=== PATIENT | female | born 1945 | race Caucasian/White ===

== ENCOUNTER 2018-02-27 10:31 | Outpatient (CLI) | payer BC ==
[2018-02-27 11:28] LABS: #Basophils 0.1 thou/uL (0.0-0.2); #Eosinphils 0.1 thou/uL (0.0-0.7); #Lymphocytes 1.5 thou/uL (1.20-3.40); #Monocytes 0.8 thou/uL (0.11-0.59); #Neutrophils 4.1 thou/uL (1.40-6.50); %Basophils 1.1 % (0.0-1.0); %Eosinophils 1.8 % (0.0-10.0); %Monocytes 11.8 % (0.0-10.0); %Neutrophils 62.3 % (42.0-75.0); Hemoglobin 13.4 g/dL (12.0-16.0); Mean Corpuscular HGB CONC 34.1 g/dL (32.0-36.0); Mean Corpuscular Hemoglobin 35.2 pg (27.0-31.0); Mean Platelet Volume 8.3 fL (7.4-10.4); Platelet Count 207 thou/uL (130-400); RBC Distribution Width 11.4 % (11.5-14.5); White Blood Cell (WBC) Count 6.5 thou/uL (4.8-10.8)
[2018-02-27 11:47] LABS: Anion Gap 9 mmol/L (10-20); BUN (Urea Nitrogen) 29 mg/dL (9.8-20.1); Calc. Creatinine Clearance 0 mL/min (70-130); Calcium 9.7 mg/dL (7.8-10.44); Carbon Dioxide 28 mmol/L (23-31); Chloride 104 mmol/L (98-107); Estimated GFR-MDRD 74; Glucose 81 mg/dL (83-110); Sodium 137 mmol/L (136-145)
--- NOTE | 2018-02-28 06:16 | EKG ---
Test Reason : Blood Pressure : / mmHG Vent. Rate : 075 BPM Atrial Rate : 075 BPM P-R Int : 134 ms QRS Dur : 122 ms QT Int : 404 ms P-R-T Axes : 089 -66 081 degrees QTc Int : 451 ms Normal sinus rhythm Possible Left atrial enlargement (p wave V1) Left axis deviation Left bundle branch block Abnormal ECG No previous ECGs available Confirmed by JOSETTE PAYTON ([id number]) on 02/28/2018 6:16:22 AM Referred By: JEWELL Confirmed By:JOSETTE PAYTON
== END 2018-02-27 10:32 | disposition home or self-care (01) ==
LOC: LABBT 10:31
PROVIDERS: ATTEND Surgery
DX: Z01.818 Encounter for other preprocedural examination (principal); K40.90 Unilateral inguinal hernia, without obstruction or gangrene, not specified as recurrent
CPT/HCPCS: 80048; 85025; 93005; 93010

== ENCOUNTER 2018-02-28 11:09 | Day surgery (SDC) | payer BC ==
[2018-02-24 13:16] VITALS: BMI 16.5
[2018-02-28] MEDS ORDERED: CEFAZOLIN/Water 2 GM/20 ML SYRINGE ONE (12:52)
[2018-02-28] MEDS ORDERED: Bupivacaine/Epinephrine 0.25% 30 ML VIAL ONE (14:09)
[2018-02-28] MEDS ORDERED: Midazolam HCl 2 mg/2 ml Vial ONE (14:18)
[2018-02-28] MEDS ORDERED: Fentanyl 100 MCG/2 ML VIAL ONE ×2 (14:18→16:21)
[2018-02-28] MEDS ORDERED: Glycopyrrolate 0.2 MG/ML 5 ML SYRINGE ONE (14:42)
[2018-02-28] MEDS ORDERED: Ondansetron HCl/PF 4 MG/2 ML Vial ONE (14:42)
[2018-02-28] MEDS ORDERED: Lidocaine 1% PF 5 ML VIAL ONE (14:42)
[2018-02-28] MEDS ORDERED: PROPOFOL 200 MG/20 ML VIAL ONE (14:42)
[2018-02-28] MEDS ORDERED: HYDROcodone/Acetaminophen 5/325 mg Tablet ONE (17:09)
--- NOTE | 2018-02-28 18:27 | OP ---
DATE OF SURGERY: 02/28/2018 PREOPERATIVE DIAGNOSIS: Left inguinal hernia. POSTOPERATIVE DIAGNOSIS: Left inguinal hernia. PROCEDURE: Left inguinal hernia repair with mesh, Da Khushboo robot laparoscopic, Bard 3DMax medium. SURGEON: Ramon Latham M.D. ANESTHESIA: General. ESTIMATED BLOOD LOSS: Minimal. COMPLICATIONS: None. SPECIMEN: None. FINDINGS: Indirect left inguinal hernia. TECHNIQUE: The patient was taken to the operating room and placed supine on the table. After genera l anesthetic was obtained, a Castaneda was placed. The abdomen was prepped and draped in a sterile fashi on. Curved incision made above the umbilicus to dissect down to and score the fascia. Abdominal cav ity entered bluntly using a Lizabeth clamp. An 11 mm balloon applied medical trocar was placed in the u sual fashion and high-flow pneumoperitoneum was obtained. Left and right abdominal 8 mm robot trocar s were placed. All ports are docked to the robot. The peritoneum was taken down in the left groin, exposing the preperitoneal space. There was no right inguinal hernia. The left preperitoneal space was bluntly dissected the pubic tubercle medially and to the anterior superior iliac crest laterally. The indirect hernia sac was dissected out of the inguinal canal up high onto the peritoneum. The r ound ligament was cauterized and split and the proximal round ligament was dissected high upon the pe ritoneum. A 3DMax medium mesh brought into the sterile field. It was placed to cover the indirect, direct and femoral components in the left preperitoneal space, sewn via 2-0 Vicryl to the pubic tuber anatoly medially and to the posterior fascia laterally. The peritoneum was reapproximated using 3-0 Stra tafix. Because of the patient's thin build, 0 Vicryl GraNee needle was used to close the muscle at t he port sites left and right. All ports are removed under camera visualization. Pneumoperitoneum wa s let down. PDS was used to close the fascial defect below the umbilicus. All incisions were irriga kareen and closed using 4-0 Monocryl and Dermabond. The patient went to recovery in stable condition. Instrument counts, needle counts, lap counts were correct.
== END 2018-02-28 17:35 | disposition home or self-care (01) ==
LOC: SDC 11:09
PROVIDERS: ATTEND Surgery
PROC: 0YU64JZ Supplement Left Inguinal Region with Synthetic Substitute, Percutaneous Endoscopic Approach (ICD-10-PCS; principal; 2018-02-28)
DX: K40.90 Unilateral inguinal hernia, without obstruction or gangrene, not specified as recurrent (principal); G20 Parkinson's disease; I10 Essential (primary) hypertension; Z79.82 Long term (current) use of aspirin; Z79.899 Other long term (current) drug therapy; Z88.2 Allergy status to sulfonamides
CPT/HCPCS: C1781; J2001; J2250; J2405; J2704; J3010

== ENCOUNTER 2018-03-01 04:50 | Emergency (ER) | payer BC ==
[2018-03-01 05:29] LABS: Bilirubin Negative (Negative); Blood, Urine Negative (Negative); Clarity CLEAR (Clear); Glucose, Urine (Dipstick) Negative (Negative); Leukocyte Trace (Negative); Nitrite Negative (Negative); Protein, Urine (Dipstick) Negative (Neg-Trace); Specific Gravity, Urine 1.005 (1.002-1.036); Urobilinogen 0.2 mg/dL (0.2-1.0)
[2018-03-01 05:31] LABS: Bacteria/HPF None Seen HPF (None Seen); Hyaline Casts/LPF 0-3 HYALINE CAST LPF (0-3 Hyaline); Pathc Cast-AUWi Flag 0.14 (0-2.49); RBC/HPF 0-3 HPF (0-3); Squamous Epithelial 0-3 HPF (0-3); WBC/HPF 0-3 HPF (0-3)
== END 2018-03-01 06:13 | disposition home or self-care (01) ==
LOC: ERS 04:50
DX: R33.9 Retention of urine, unspecified (principal); E78.5 Hyperlipidemia, unspecified; I10 Essential (primary) hypertension; G20 Parkinson's disease; Z79.899 Other long term (current) drug therapy; Z79.82 Long term (current) use of aspirin
CPT/HCPCS: 51702; 81003; 81015

== ENCOUNTER 2018-03-22 12:17 | Emergency (ER) | payer BC ==
[2018-03-22 13:02] LABS: #Basophils 0.1 thou/uL (0.0-0.2); #Eosinphils 0.3 thou/uL (0.0-0.7); #Lymphocytes 1.5 thou/uL (1.20-3.40); #Monocytes 0.6 thou/uL (0.11-0.59); #Neutrophils 3.8 thou/uL (1.40-6.50); %Basophils 0.9 % (0.0-1.0); %Eosinophils 4.4 % (0.0-10.0); %Lymphocytes 23.7 % (21.0-51.0); %Monocytes 9.3 % (0.0-10.0); %Neutrophils 61.8 % (42.0-75.0); Hemoglobin 13.9 g/dL (12.0-16.0); Mean Corpuscular HGB CONC 34.6 g/dL (32.0-36.0); Mean Corpuscular Hemoglobin 35.7 pg (27.0-31.0); Mean Platelet Volume 8.8 fL (7.4-10.4); Platelet Count 209 thou/uL (130-400); RBC Distribution Width 11.2 % (11.5-14.5); White Blood Cell (WBC) Count 6.2 thou/uL (4.8-10.8)
[2018-03-22 13:16] LABS: ALT (SGPT) 12 U/L (8-55); AST (SGOT) 26 U/L (5-34); Albumin 4.1 g/dL (3.4-4.8); Alkaline Phosphatase 147 U/L (40-150); Anion Gap 16 mmol/L (10-20); BUN (Urea Nitrogen) 18 mg/dL (9.8-20.1); Bilirubin, Total 0.7 mg/dL (0.2-1.2); Calc. Creatinine Clearance 0 mL/min (70-130); Calcium 9.8 mg/dL (7.8-10.44); Carbon Dioxide 24 mmol/L (23-31); Chloride 98 mmol/L (98-107); Estimated GFR-MDRD 66; Globulin 3.1 g/dL (2.4-3.5); Glucose 154 mg/dL (83-110); Potassium 4.6 mmol/L (3.5-5.1); Protein, Total 7.2 g/dL (6.0-8.3); Sodium 133 mmol/L (136-145)
[2018-03-22 13:21] LABS: CKMB 3.2 ng/mL (0-6.6); Troponin I Less than 0.010 ng/mL (< 0.028)
[2018-03-22] MEDS ORDERED: cloNIDine 0.1 MG TAB ONE (14:58)
--- NOTE | 2018-03-22 15:21 | RAD ---
CHEST PA AND LATERAL: HISTORY: A 72-year-old female with a history of hernia surgery 3 weeks ago with shortness of breath. FINDINGS: There is some rotation to the left. Monitor leads overlie the chest. Calcified breast augmentation prostheses are noted. S-shaped thoracolumbar spine scoliosis. Heart size is within normal limits. No confluent pneumonia, overt edema, or pleural effusion. IMPRESSION: No acute intrathoracic disease. POS: [facility]
== END 2018-03-22 16:22 | disposition home or self-care (01) ==
LOC: ERS 12:17
DX: R53.81 Other malaise (principal); I10 Essential (primary) hypertension; G20 Parkinson's disease; Z79.899 Other long term (current) drug therapy; Z79.82 Long term (current) use of aspirin
CPT/HCPCS: 71045; 80053; 82553; 83880; 84484; 85025; 85379; 93005

== ENCOUNTER 2018-05-01 07:36 | Outpatient (CLI) | payer BC ==
--- NOTE | 2018-05-01 11:58 | NM ---
MYOCARDIAL PERFUSION EVALUATION: INDICATION: Angina pectoris, chest pain. RADIOPHARMACEUTICAL: 31.5 and 10.4 mCi technetium-99m sestamibi IV administered at stress and rest. FINDINGS: There is no evidence of a significant perfusion defect of the left ventricular perez. Gated imaging reveals wall motion and contractility. Calculated LVEF is measured at 58%. IMPRESSION: 1. No scintigraphic evidence of significant ischemia or scar. 2. LVEF calculated at 58%. POS: [facility]
[2018-05-01] MEDS ORDERED: ADENOSINE 60 MG/20 ML VIAL ONE (16:14)
== END 2018-05-01 07:37 | disposition home or self-care (01) ==
LOC: NM 07:36
DX: I20.8 Other forms of angina pectoris (principal); I44.7 Left bundle-branch block, unspecified
CPT/HCPCS: 78452; 93017; A9500; J0153

== ENCOUNTER 2019-02-06 07:56 | Outpatient (CLI) | payer BC ==
--- NOTE | 2019-02-06 12:20 | MRI ---
MRI OF THE LUMBAR SPINE WITHOUT CONTRAST: INDICATION: Spondylosis of the lumbosacral spine, low back pain. FINDINGS: There are moderately severe degenerative changes of the lumbar spine. There is a prominent scoliotic curvature of the convexity to the left. In the sagittal plane the vertebral bodies maintain height. There are degenerative disk and end plate changes at all levels of the lumbar spine. Prominent ost eophytes. At L1-2, there is a broad-based disk bulge flattening the anterior thecal sac. Facet hypertrophy. N o significant central canal stenosis. Right foraminal stenosis exacerbated by the scoliotic curvatur e and hypertrophic change with asymmetric disk bulge to the right. At L2-3, disk bulge and spurring posteriorly flattens the thecal sac. Facet hypertrophy. No signifi cant central canal stenosis. Right foraminal stenosis due to disk-osteophyte complex and facet hyper trophy exacerbated by the scoliotic curvature. At L3-4, mild diffuse disk bulge. No significant central canal stenosis. Right foraminal stenosis a nd encroachment due to disk-osteophyte complex extending into the foramina and contacting the exiting right L3 nerve root. At L4-5, broad-based disk bulge and dense anterior thecal sac. Facet hypertrophy. Mild central jacinto l stenosis. Bilateral foraminal stenosis at this level slightly more pronounced on the left due to h ypertrophic change. At L5-S1, broad-based disk bulge flattens the anterior thecal sac. No significant central canal sten osis. Left foraminal stenosis due to disk-osteophyte complex projecting into the left foramina and l aterally on the left displacing the exiting L5 nerve root. IMPRESSION: Scoliotic curvature to the lumbar spine with degenerative disk changes at all levels. There is yadi inal stenosis at multiple levels as described above. No significant central canal stenosis. POS: [facility]
== END 2019-02-06 07:57 | disposition home or self-care (01) ==
LOC: SCSMRI 07:56
DX: M47.817 Spondylosis without myelopathy or radiculopathy, lumbosacral region (principal); M54.9 Dorsalgia, unspecified; M47.816 Spondylosis without myelopathy or radiculopathy, lumbar region; M48.061 Spinal stenosis, lumbar region without neurogenic claudication; M48.07 Spinal stenosis, lumbosacral region; M51.36 Other intervertebral disc degeneration, lumbar region; M41.9 Scoliosis, unspecified
CPT/HCPCS: 72148; 72158

== ENCOUNTER 2020-10-09 19:43 | Inpatient (IN) | payer BC, MEDICARE ==
[2020-10-09 21:21] LABS: ALT (SGPT) Less than 7 U/L (8-55); AST (SGOT) 23 U/L (5-34); Albumin 4.3 g/dL (3.4-4.8); Alkaline Phosphatase 132 U/L (40-110); Anion Gap 14 mmol/L (10-20); BUN (Urea Nitrogen) 27 mg/dL (9.8-20.1); Bilirubin, Total 0.6 mg/dL (0.2-1.2); Calc. Creatinine Clearance 0 mL/min (70-130); Calcium 9.6 mg/dL (7.8-10.44); Carbon Dioxide 27 mmol/L (23-31); Chloride 104 mmol/L (98-107); Globulin 2.6 g/dL (2.4-3.5); Glucose 98 mg/dL (83-110); Potassium 4.3 mmol/L (3.5-5.1); Protein, Total 6.9 g/dL (5.8-8.1); Sodium 141 mmol/L (136-145)
[2020-10-09 21:24] LABS: #Basophils 0.1 thou/uL (0.0-0.2); #Eosinphils 0.1 thou/uL (0.0-0.7); #Lymphocytes 1.1 thou/uL (1.20-3.40); #Monocytes 0.8 thou/uL (0.11-0.59); #Neutrophils 7.2 thou/uL (1.40-6.50); %Basophils 0.7 % (0.0-1.0); %Eosinophils 1.1 % (0.0-10.0); %Lymphocytes 11.9 % (21.0-51.0); %Monocytes 8.7 % (0.0-10.0); %Neutrophils 77.6 % (42.0-75.0); Hemoglobin 14.9 g/dL (12.0-16.0); Mean Corpuscular HGB CONC 33.5 g/dL (32.0-36.0); Mean Platelet Volume 8.7 fL (7.4-10.4); Platelet Count 224 thou/uL (130-400); RBC Distribution Width 11.6 % (11.5-14.5); RBC Morphology Normal; Red Blood Cell (RBC) Count 4.24 mill/uL (4.20-5.40); White Blood Cell (WBC) Count 9.3 thou/uL (4.8-10.8)
[2020-10-09 21:49] LABS: SARS-CoV-2 NAA Rapid Test Not Detected (NotDetected)
[2020-10-09] MEDS ORDERED: PROPOFOL 20 ML ONE (23:38)
[2020-10-10] MEDS ORDERED: Fentanyl 100 MCG/2 ML VIAL ONE ×2 (00:10)
[2020-10-10] MEDS ORDERED: Bupivacaine PF 0.5% 30 ML VIAL ONE (00:13)
[2020-10-10] MEDS ORDERED: Sodium Chloride 0.9% 10 ML ONE (00:13)
[2020-10-10] MEDS ORDERED: Acetaminophen/Codeine 30-300mg Tablet PO PRN (00:28)
[2020-10-10] MEDS ORDERED: Morphine 4 MG/ML VIAL SLOW IVP PRN (00:28)
[2020-10-10] MEDS ORDERED: HYDROcodone/Acetaminophen 5/325 mg Tablet PO PRN (00:28)
[2020-10-10] MEDS ORDERED: Promethazine HCl 25 MG/ML VIAL IM PRN (00:28)
[2020-10-10] MEDS ORDERED: Ondansetron PF 4 MG/2 ML Vial IVP PRN (00:28)
[2020-10-10] MEDS ORDERED: TETANUS AND DIPHTHERIA TOX/PF 0.5 ML DISP.SYRIN IM SCH (00:30)
[2020-10-10] MEDS ORDERED: Meperidine HCl/PF 25 MG/ML VIAL IM PRN (00:35)
[2020-10-10] MEDS ORDERED: Ondansetron PF 4 MG/2 ML Vial ONE ×2 (00:44)
[2020-10-10] MEDS ORDERED: PROPOFOL 200 MG/20 ML VIAL ONE ×2 (00:44)
[2020-10-10] MEDS ORDERED: Ketorolac Tromethamine 30 MG/ML VIAL ONE ×2 (00:44)
[2020-10-10] MEDS ORDERED: Dexamethasone 20 MG/5 ML VIAL ONE ×2 (00:44)
[2020-10-10] MEDS ORDERED: PHENYLEPHRINE-NS 100 MCG/ML 10 ML SYRINGE ONE ×2 (00:44)
[2020-10-10] MEDS ORDERED: Lidocaine 1% PF 5 ML VIAL ONE ×2 (00:44)
[2020-10-10] MEDS ORDERED: Succinylcholine 200 MG/10 ml SYRINGE FS ONE ×2 (00:44)
[2020-10-10] MEDS ORDERED: Clindamycin/D5W 900 mg/50 ml Premix Bag ONE (01:09)
[2020-10-10 01:34] LABS: HIV (1/2) Antibody/Antigen Non-Reactive (NonReactive); HIV 1/2 INDEX 0.15 S/CO (<1.00)
[2020-10-10] MEDS ORDERED: Gentamicin Sulfate 80 MG in Premix Bag 1 BAG IVPB SCH (03:00)
[2020-10-10 04:09] VITALS: BMI 19.5
[2020-10-10 04:47] LABS: #Lymphocytes 0.4 thou/uL (1.20-3.40); #Monocytes 0.2 thou/uL (0.11-0.59); #Neutrophils 9.7 thou/uL (1.40-6.50); %Basophils 0.4 % (0.0-1.0); %Eosinophils 0.2 % (0.0-10.0); %Lymphocytes 3.9 % (21.0-51.0); %Monocytes 1.7 % (0.0-10.0); %Neutrophils 93.7 % (42.0-75.0); Hemoglobin 13.8 g/dL (12.0-16.0); Mean Corpuscular HGB CONC 33.1 g/dL (32.0-36.0); Mean Corpuscular Hemoglobin 34.6 pg (27.0-31.0); Platelet Count 206 thou/uL (130-400); RBC Distribution Width 11.5 % (11.5-14.5); White Blood Cell (WBC) Count 10.4 thou/uL (4.8-10.8)
[2020-10-10] MEDS: Clindamycin/D5W 900 MG in Premix Bag 1 BAG IVPB SCH ×3 (04:50→18:42)
[2020-10-10] MEDS ORDERED: Gentamicin 80 MG/2 ML VIAL IM SCH (06:00)
[2020-10-10] MEDS: Ketorolac Tromethamine 30 MG/ML VIAL IVP SCH ×3 (06:24→18:41)
[2020-10-10] MEDS: Gentamicin Sulfate 80 MG in Premix Bag 1 BAG IVPB SCH ×3 (06:25→22:42)
[2020-10-10] MEDS: Pen G 2.5 MILL.UNITS/50 ML BAG IVPB SCH ×4 (08:56→21:02)
[2020-10-10] MEDS: Aspirin 81 mg Enteric Coated Tablet PO SCH ×2 (09:54→20:27)
[2020-10-10] MEDS: Carbidopa/Levodopa 25-250 mg Tablet PO SCH ×2 (15:47→16:43)
[2020-10-10] MEDS ORDERED: Carbidopa/Levodopa 25-100 mg Tablet PO SCH (16:15)
[2020-10-10] MEDS: Carbidopa/Levodopa 25-100 mg Tablet PO SCH (20:27)
[2020-10-11] MEDS: Ketorolac Tromethamine 30 MG/ML VIAL IVP SCH ×2 (01:04→05:47)
[2020-10-11] MEDS: Pen G 2.5 MILL.UNITS/50 ML BAG IVPB SCH ×5 (01:04→16:21)
[2020-10-11] MEDS: Clindamycin/D5W 900 MG in Premix Bag 1 BAG IVPB SCH ×2 (02:30→09:26)
[2020-10-11 05:32] LABS: #Eosinphils 0.1 thou/uL (0.0-0.7); #Lymphocytes 2.3 thou/uL (1.20-3.40); #Monocytes 1.1 thou/uL (0.11-0.59); #Neutrophils 7.1 thou/uL (1.40-6.50); %Basophils 0.4 % (0.0-1.0); %Eosinophils 0.7 % (0.0-10.0); %Lymphocytes 21.3 % (21.0-51.0); %Monocytes 10.3 % (0.0-10.0); %Neutrophils 67.3 % (42.0-75.0); Hemoglobin 11.7 g/dL (12.0-16.0); Mean Corpuscular HGB CONC 33.5 g/dL (32.0-36.0); Mean Corpuscular Hemoglobin 35.1 pg (27.0-31.0); Platelet Count 179 thou/uL (130-400); RBC Distribution Width 11.5 % (11.5-14.5); Red Blood Cell (RBC) Count 3.34 mill/uL (4.20-5.40); White Blood Cell (WBC) Count 10.6 thou/uL (4.8-10.8)
[2020-10-11] MEDS: Carbidopa/Levodopa 25-100 mg Tablet PO SCH ×4 (05:46→20:14)
[2020-10-11] MEDS: Gentamicin Sulfate 80 MG in Premix Bag 1 BAG IVPB SCH ×2 (05:47→15:21)
[2020-10-11] MEDS ORDERED: ARMODAFINIL PO SCH (09:00)
[2020-10-11] MEDS ORDERED: ASCORBIC ACID 1000 MG PO SCH (09:00)
[2020-10-11] MEDS ORDERED: Clindamycin/D5W 900 mg/50 ml Premix Bag ONE (09:31)
[2020-10-11] MEDS: Losartan 25 MG TAB PO SCH (09:34)
[2020-10-11] MEDS: Ascorbic Acid 500 mg Chewable Tablet PO SCH (09:34)
[2020-10-11] MEDS: Fish Oil 1,000 MG CAP PO SCH (09:34)
[2020-10-11] MEDS: Aspirin 81 mg Enteric Coated Tablet PO SCH ×2 (09:34→20:14)
[2020-10-11] MEDS: Atorvastatin Calcium 10 MG TAB PO SCH (09:34)
[2020-10-11] MEDS: Calcium Carbonate 600 MG + Vit D TAB PO SCH (09:35)
[2020-10-11] MEDS: AZILECT 1 MG TAB PO SCH (09:36)
[2020-10-11] MEDS: NEUPRO 8 MG TOP SCH (09:36)
[2020-10-11 12:14] LABS: #Eosinphils 0.1 thou/uL (0.0-0.7); #Lymphocytes 2.8 thou/uL (1.20-3.40); #Monocytes 0.9 thou/uL (0.11-0.59); #Neutrophils 6.2 thou/uL (1.40-6.50); %Basophils 0.2 % (0.0-1.0); %Lymphocytes 27.8 % (21.0-51.0); %Neutrophils 62.1 % (42.0-75.0); Hemoglobin 13.3 g/dL (12.0-16.0); Mean Corpuscular HGB CONC 33.2 g/dL (32.0-36.0); Mean Corpuscular Hemoglobin 35.1 pg (27.0-31.0); Platelet Count 181 thou/uL (130-400); RBC Distribution Width 11.6 % (11.5-14.5)
[2020-10-11] MEDS ORDERED: Amlodipine 5 MG TAB PO SCH (15:15)
[2020-10-11] MEDS: VANCOMYCIN 1.25 GM/250 ML BAG 1.25 GM in Premix Bag 1 BAG IVPB SCH (18:09)
[2020-10-11] MEDS: Acetaminophen 325 MG TAB PO PRN (20:15)
[2020-10-11] MEDS: Cefepime 1 GM in Sodium Chloride 0.9% 100 ML IVPB SCH (20:15)
[2020-10-11] MEDS: traMADol HCl 50 MG TAB PO PRN (20:16)
[2020-10-11] MEDS ORDERED: Melatonin 3 MG TAB PO PRN (20:17)
[2020-10-12] MEDS: traMADol HCl 50 MG TAB PO PRN (03:57)
[2020-10-12] MEDS: Acetaminophen 325 MG TAB PO PRN (03:58)
[2020-10-12] MEDS: Carbidopa/Levodopa 25-100 mg Tablet PO SCH ×4 (06:10→18:51)
[2020-10-12] MEDS: Aspirin 81 mg Enteric Coated Tablet PO SCH ×2 (09:01→20:38)
[2020-10-12] MEDS: Ascorbic Acid 500 mg Chewable Tablet PO SCH (09:02)
[2020-10-12] MEDS: Calcium Carbonate 600 MG + Vit D TAB PO SCH (09:03)
[2020-10-12] MEDS: Fish Oil 1,000 MG CAP PO SCH (09:03)
[2020-10-12] MEDS: Atorvastatin Calcium 10 MG TAB PO SCH (09:03)
[2020-10-12] MEDS: Amlodipine 5 MG TAB PO SCH (09:03)
[2020-10-12] MEDS: Cefepime 1 GM in Sodium Chloride 0.9% 100 ML IVPB SCH ×2 (09:04→20:38)
[2020-10-12] MEDS: AZILECT 1 MG TAB PO SCH (09:05)
[2020-10-12] MEDS: NEUPRO 8 MG TOP SCH (09:05)
[2020-10-12] MEDS: Losartan 25 MG TAB PO SCH (09:12)
[2020-10-12] MEDS: VANCOMYCIN 1.25 GM/250 ML BAG 1.25 GM in Premix Bag 1 BAG IVPB SCH (16:00)
[2020-10-13] MEDS: Carbidopa/Levodopa 25-100 mg Tablet PO SCH ×4 (06:02→18:22)
[2020-10-13] MEDS ORDERED: Bupivacaine PF 0.5% 30 ML VIAL ONE (06:13)
[2020-10-13] MEDS ORDERED: Thrombin 5000 UNITS/5 ML VIAL ONE (06:14)
[2020-10-13] MEDS ORDERED: Bacitracin Zinc Ointment 30 gm TUBE ONE (06:14)
[2020-10-13] MEDS ORDERED: Fentanyl 100 MCG/2 ML VIAL ONE ×2 (06:50→08:40)
[2020-10-13] MEDS ORDERED: Ondansetron PF 4 MG/2 ML Vial ONE (07:05)
[2020-10-13] MEDS ORDERED: PROPOFOL 200 MG/20 ML VIAL ONE (07:05)
[2020-10-13] MEDS ORDERED: Dexamethasone 20 MG/5 ML VIAL ONE (07:05)
[2020-10-13] MEDS ORDERED: hydrALAZINE 20 MG/ML VIAL ONE (08:20)
[2020-10-13] MEDS ORDERED: Ketorolac Tromethamine 30 MG/ML VIAL ONE (08:32)
[2020-10-13] MEDS ORDERED: Non-Formulary Medication 1 EACH PO PRN (08:53)
[2020-10-13] MEDS ORDERED: Ketorolac Tromethamine 30 MG/ML VIAL IVP PRN (09:00)
[2020-10-13] MEDS ORDERED: Ondansetron HCl/PF 4 MG/2 ML Vial IVP PRN (09:00)
[2020-10-13] MEDS ORDERED: Promethazine HCl 25 MG/ML VIAL IM/IV PRN (09:00)
[2020-10-13] MEDS: NEUPRO 8 MG TOP SCH (10:18)
[2020-10-13] MEDS: Cefepime 1 GM in Sodium Chloride 0.9% 100 ML IVPB SCH (10:18)
[2020-10-13] MEDS: AZILECT 1 MG TAB PO SCH (10:19)
[2020-10-13] MEDS: Aspirin 81 mg Enteric Coated Tablet PO SCH (10:20)
[2020-10-13] MEDS: Atorvastatin Calcium 10 MG TAB PO SCH (10:20)
[2020-10-13] MEDS: Fish Oil 1,000 MG CAP PO SCH (10:21)
[2020-10-13] MEDS: Calcium Carbonate 600 MG + Vit D TAB PO SCH (10:21)
[2020-10-13] MEDS: Amlodipine 5 MG TAB PO SCH (10:21)
[2020-10-13] MEDS: Ascorbic Acid 500 mg Chewable Tablet PO SCH (10:21)
[2020-10-13] MEDS: Losartan 25 MG TAB PO SCH (10:27)
[2020-10-13] MEDS ORDERED: Lorazepam 1 MG TAB PO SCH (10:45)
[2020-10-13] MEDS: Lorazepam 0.5 MG TAB PO SCH ×2 (10:45→10:48)
[2020-10-13] MEDS: VANCOMYCIN 1.25 GM/250 ML BAG 1.25 GM in Premix Bag 1 BAG IVPB SCH (16:49)
[2020-10-13 19:53] VITALS: BP 123/73; TEMP 97.6
[2020-10-14 16:15] LABS: Fungus Stain Final report (.)
[2020-10-14 16:15] LABS: Fungus Stain Final report (.)
[2020-10-14 16:15] LABS: Fungus Stain Final report (.)
[2020-11-08 13:40] LABS: Fungus Culture Final report (.)
[2020-11-08 13:40] LABS: Fungus Culture Final report (.)
[2020-11-08 13:40] LABS: Fungus Culture Final report (.)
== END 2020-10-13 19:30 | disposition home or self-care (01) | DRG 464 ==
LOC: ERS 19:43 → SDC/OP 10-10 01:26 → SURG A 10-10 01:26 → SDC/OP 10-10 03:37
PROVIDERS: ADMIT Orthopaedic Surgery Hand Surgery; ATTEND Internal Medicine
PROC: 0R9X0ZZ Drainage of Left Finger Phalangeal Joint, Open Approach (ICD-10-PCS; principal; 2020-10-09)
PROC: 01N50ZZ Release Median Nerve, Open Approach (ICD-10-PCS; 2020-10-09)
PROC: 0LB80ZZ Excision of Left Hand Tendon, Open Approach (ICD-10-PCS; 2020-10-09)
PROC: 0JBH0ZZ Excision of Left Lower Arm Subcutaneous Tissue and Fascia, Open Approach (ICD-10-PCS; 2020-10-13)
PROC: 0JBK0ZZ Excision of Left Hand Subcutaneous Tissue and Fascia, Open Approach (ICD-10-PCS; 2020-10-13)
DX: M65.842 Other synovitis and tenosynovitis, left hand (principal); M00.842 Arthritis due to other bacteria, left hand; Z20.822 Contact with and (suspected) exposure to COVID-19; I10 Essential (primary) hypertension; G20 Parkinson's disease; E78.5 Hyperlipidemia, unspecified; D53.9 Nutritional anemia, unspecified; Z90.710 Acquired absence of both cervix and uterus; Z88.2 Allergy status to sulfonamides; Z79.82 Long term (current) use of aspirin; Z79.899 Other long term (current) drug therapy
CPT/HCPCS: 0240U; 36415; 71045; 76999; 80053; 80170; 82607; 82746; 83605; 84550; 84560; 85025; 85652; 86850; 86900; 86901; 87040; 87070; 87102; 87205; 87206; 87389; 88304; 89060; J0360; J0692; J1100; J1580; J1885; J2405; J2540; J2704; J3010; J3370; J3490; S0020

== ENCOUNTER 2021-06-16 14:04 | Outpatient (CLI) | payer BC | END 2021-06-16 14:05 | disposition home or self-care (01) | LOC: SCSMRI 14:04 | PROVIDERS: ATTEND Nurse Practitioner Adult Health | DX: M47.817 Spondylosis without myelopathy or radiculopathy, lumbosacral region (principal); M41.20 Other idiopathic scoliosis, site unspecified; M54.50 Low back pain, unspecified; G89.29 Other chronic pain; M47.816 Spondylosis without myelopathy or radiculopathy, lumbar region; M41.86 Other forms of scoliosis, lumbar region | CPT/HCPCS: 72148 ==

== ENCOUNTER 2021-07-11 15:38 | Emergency (ER) | payer BC ==
[2021-07-11 16:29] LABS: #Basophils 0.1 thou/uL (0.0-0.2); #Eosinphils 0.2 thou/uL (0.0-0.7); #Monocytes 0.7 thou/uL (0.11-0.59); %Basophils 1.8 % (0.0-1.0); %Eosinophils 3.2 % (0.0-10.0); %Lymphocytes 33.2 % (21.0-51.0); %Monocytes 11.8 % (0.0-10.0); Hemoglobin 15.5 g/dL (12.0-16.0); Mean Corpuscular HGB CONC 33.3 g/dL (32.0-36.0); Mean Corpuscular Hemoglobin 35.4 pg (27.0-31.0); Mean Platelet Volume 8.7 fL (7.4-10.4); Platelet Count 216 thou/uL (130-400); RBC Distribution Width 11.1 % (11.5-14.5); Red Blood Cell (RBC) Count 4.37 mill/uL (4.20-5.40)
[2021-07-11 16:59] LABS: ALT (SGPT) 24 U/L (8-55); AST (SGOT) 28 U/L (5-34); Albumin 4.4 g/dL (3.4-4.8); Alkaline Phosphatase 96 U/L (40-110); Anion Gap 13 mmol/L (10-20); BUN (Urea Nitrogen) 23 mg/dL (9.8-20.1); Bilirubin, Total 0.7 mg/dL (0.2-1.2); Calc. Creatinine Clearance 0 mL/min (70-130); Calcium 10.6 mg/dL (7.8-10.44); Carbon Dioxide 30 mmol/L (23-31); Chloride 101 mmol/L (98-107); Glucose 137 mg/dL (83-110); Potassium 4.5 mmol/L (3.5-5.1); Protein, Total 7.4 g/dL (5.8-8.1); Sodium 139 mmol/L (136-145)
== END 2021-07-11 18:11 | disposition left against medical advice (07) ==
LOC: ERS 15:38
DX: Z53.21 Procedure and treatment not carried out due to patient leaving prior to being seen by health care provider (principal)
CPT/HCPCS: 36415; 80053; 85025

== ENCOUNTER 2021-10-26 18:16 | Emergency (ER) | payer BC | END 2021-10-26 21:56 | disposition home or self-care (01) | LOC: ERS 18:16 | DX: S82.402A Unspecified fracture of shaft of left fibula, initial encounter for closed fracture (principal); L03.115 Cellulitis of right lower limb; I10 Essential (primary) hypertension; E78.5 Hyperlipidemia, unspecified; E78.00 Pure hypercholesterolemia, unspecified; W19.XXXA Unspecified fall, initial encounter ==

== ENCOUNTER 2023-01-15 11:47 | Observation (INO) | payer BC ==
[2023-01-15 12:19] LABS: #Monocytes 0.5 thou/uL (0.11-0.59); #Neutrophils 3.9 thou/uL (1.40-6.50); %Basophils 0.7 % (0.0-1.0); %Eosinophils 0.7 % (0.0-10.0); %Lymphocytes 27.1 % (21.0-51.0); %Monocytes 7.4 % (0.0-10.0); %Neutrophils 63.9 % (42.0-75.0); Hemoglobin 14.4 g/dL (12.0-16.0); Mean Corpuscular HGB CONC 32.7 g/dL (32.0-36.0); Mean Corpuscular Hemoglobin 34.7 pg (27.0-31.0); Platelet Count 230 10x3/uL (130-400); RBC Distribution Width 12.7 % (11.5-14.5); Red Blood Cell (RBC) Count 4.15 mill/uL (4.20-5.40); White Blood Cell (WBC) Count 6.1 10x3/uL (4.8-10.8)
[2023-01-15 12:48] LABS: ALT (SGPT) Less than 7 U/L (8-55); AST (SGOT) 22 U/L (5-34); Albumin 4.4 g/dL (3.4-4.8); Alkaline Phosphatase 89 U/L (40-110); Anion Gap 14 mmol/L (10-20); BUN (Urea Nitrogen) 27 mg/dL (9.8-20.1); Bilirubin, Total 0.7 mg/dL (0.2-1.2); Calc. Creatinine Clearance 0 mL/min (70-130); Calcium 10.1 mg/dL (7.8-10.44); Carbon Dioxide 27 mmol/L (23-31); Chloride 105 mmol/L (98-107); Estimated GFR 58; Globulin 2.7 g/dL (2.4-3.5); Glucose 129 mg/dL (83-110); Lipase 15 U/L (8-78); Potassium 4.1 mmol/L (3.5-5.1); Protein, Total 7.1 g/dL (5.8-8.1); Sodium 142 mmol/L (136-145)
[2023-01-15] MEDS ORDERED: Ondansetron PF 4 MG/2 ML Vial ONE (14:05)
[2023-01-15 16:00] LABS: Bacteria/HPF None Seen HPF (None Seen); Bilirubin Negative (Negative); Blood, Urine Negative (Negative); CAUTI Indications for Culture Alt mental st,lethar; Clarity Clear (Clear); Glucose, Urine (Dipstick) Normal (Negative); Ketone, Urine Trace mg/dL (Negative); Leukocyte Negative Leu/uL (Negative); Nitrite Negative (Negative); Protein, Urine (Dipstick) 10 mg/dL (Neg-Trace); RBC/HPF 0-3 HPF (0-3); Specific Gravity, Urine 1.022 (1.002-1.036); Squamous Epithelial None Seen HPF (0-3); Urobilinogen Normal mg/dL (Less than 2); WBC/HPF 0-3 HPF (0-3); pH, Urine 5.5 (5.0-9.0)
[2023-01-15 16:08] LABS: Urine Culture Reflex No No
[2023-01-15] MEDS ORDERED: Aspirin Chewable 81 MG TAB ONE (16:09)
[2023-01-15] MEDS ORDERED: Senokot S 8.6-50 MG TAB PO PRN (16:15)
[2023-01-15] MEDS ORDERED: Guaifenesin DM 100-10/5 ML UDCUP PO PRN (16:15)
[2023-01-15] MEDS ORDERED: Acetaminophen 325 MG TAB PO PRN (16:15)
[2023-01-15] MEDS ORDERED: Nitroglycerin 0.4 MG TAB (25 Tab Bottle) SL PRN (16:15)
[2023-01-15 17:43] VITALS: BMI 17.2
[2023-01-15 18:16] LABS: Troponin I Less than 0.010 ng/mL (< 0.028)
[2023-01-15 19:04] LABS: Troponin I Less than 0.010 ng/mL (< 0.028)
[2023-01-15] MEDS: Famotidine 20 MG TAB PO SCH (20:25)
[2023-01-15] MEDS: Midodrine HCl 5 MG TAB PO SCH (20:25)
[2023-01-15] MEDS ORDERED: Atorvastatin Calcium 10 MG TAB PO SCH (21:00)
[2023-01-16 05:47] LABS: #Basophils 0.1 thou/uL (0.0-0.2); #Eosinphils 0.3 thou/uL (0.0-0.7); #Monocytes 0.6 thou/uL (0.11-0.59); #Neutrophils 2.8 thou/uL (1.40-6.50); %Basophils 0.9 % (0.0-1.0); %Eosinophils 4.4 % (0.0-10.0); %Lymphocytes 36.2 % (21.0-51.0); %Monocytes 9.7 % (0.0-10.0); %Neutrophils 48.6 % (42.0-75.0); Hemoglobin 13.8 g/dL (12.0-16.0); Mean Corpuscular HGB CONC 33.3 g/dL (32.0-36.0); Mean Corpuscular Hemoglobin 34.5 pg (27.0-31.0); Mean Corpuscular Volume 103.8 fl (78.0-98.0); Mean Platelet Volume 10.5 fL (7.4-10.4); Platelet Count 198 10x3/uL (130-400); RBC Distribution Width 12.6 % (11.5-14.5); White Blood Cell (WBC) Count 5.7 10x3/uL (4.8-10.8)
[2023-01-16 06:16] LABS: Anion Gap 9 mmol/L (10-20); BUN (Urea Nitrogen) 20 mg/dL (9.8-20.1); Calc. Creatinine Clearance 46 mL/min (70-130); Calcium 9.2 mg/dL (7.8-10.44); Carbon Dioxide 29 mmol/L (23-31); Cardiac Risk 2.8 (Less than 4.5); Chloride 107 mmol/L (98-107); Cholesterol 152 mg/dl (< 200 Desired); Estimated GFR 68; Glucose 90 mg/dL (83-110); HDL Cholesterol 55 mg/dL (>60 Neg Risk); LDL Cholesterol, Calculated 89 mg/dL; Potassium 4.2 mmol/L (3.5-5.1); Sodium 141 mmol/L (136-145); Triglycerides 41 mg/dL (Less than 150)
[2023-01-16] MEDS ORDERED: Calcium Carbonate 600 MG + Vit D TAB PO SCH (09:00)
[2023-01-16] MEDS ORDERED: Aspirin 81 mg Enteric Coated Tablet PO SCH (09:00)
[2023-01-16] MEDS ORDERED: Venlafaxine HCl XR 75 MG CAP PO SCH (09:00)
[2023-01-16] MEDS ORDERED: Fish Oil 1,000 MG CAP PO SCH (09:00)
[2023-01-16] MEDS ORDERED: Losartan 25 MG TAB PO SCH (09:00)
[2023-01-16] MEDS ORDERED: Aspirin Chewable 81 MG TAB PO SCH (09:00)
[2023-01-16] MEDS: Famotidine 20 MG TAB PO SCH (09:35)
[2023-01-16] MEDS: Midodrine HCl 5 MG TAB PO SCH ×2 (10:04→15:32)
[2023-01-16] MEDS ORDERED: Regadenoson 0.4 MG/5 ML SYRINGE ONE (10:16)
[2023-01-16 11:29] VITALS: TEMP 98.1
[2023-01-16] MEDS ORDERED: Carbidopa/Levodopa [Rytary Er] 36.25 MG/145 MG Capsule.Er PO SCH ×3 (12:00→21:00)
[2023-01-16] MEDS ORDERED: Carbidopa/Levodopa [Rytary Er] 48.75 MG/195 MG Capsule.Er PO SCH (15:00)
[2023-01-16 15:33] VITALS: BP 149/89
[2023-01-17] MEDS ORDERED: Carbidopa/Levodopa [Rytary Er] 36.25 MG/145 MG Capsule.Er PO SCH (12:00)
== END 2023-01-16 18:00 | disposition home or self-care (01) ==
LOC: ERS 11:47 → 2SW 16:55
PROVIDERS: ADMIT Hospitalist; ATTEND Internal Medicine
DX: R07.89 Other chest pain (principal); R41.82 Altered mental status, unspecified; G20 Parkinson's disease; R55 Syncope and collapse; M41.9 Scoliosis, unspecified; E78.5 Hyperlipidemia, unspecified; I10 Essential (primary) hypertension; R11.2 Nausea with vomiting, unspecified; I45.4 Nonspecific intraventricular block; Z88.2 Allergy status to sulfonamides; Z79.82 Long term (current) use of aspirin; Z79.899 Other long term (current) drug therapy
CPT/HCPCS: 36415; 70450; 71045; 78452; 80048; 80053; 80061; 81001; 82550; 83690; 84443; 84484; 85025; 93005; 93017; 93306; 94760; 96361; 96374; A9500; G0378; J2405; J2785

== ENCOUNTER 2025-05-22 14:47 | Emergency (ER) | payer MEDICARE, BC | END 2025-05-22 17:30 | disposition home or self-care (01) | LOC: ERS 14:47 | DX: S09.90XA Unspecified injury of head, initial encounter (principal); M54.2 Cervicalgia; E78.00 Pure hypercholesterolemia, unspecified; I10 Essential (primary) hypertension; Z79.899 Other long term (current) drug therapy; W01.0XXA Fall on same level from slipping, tripping and stumbling without subsequent striking against object, initial encounter; Y92.009 Unspecified place in unspecified non-institutional (private) residence as the place of occurrence of the external cause | CPT/HCPCS: 70450; 72125 ==